=== PATIENT | female | born 1970 | race African-American/Black ===

== ENCOUNTER 2024-07-25 12:46 | Inpatient (IN) | payer BC ==
[2024-07-25 13:30] VITALS: BMI 23.7
[2024-07-25] MEDS ORDERED: BENZONATATE 200 MG CAPSULE PO PRN (15:36)
[2024-07-25] MEDS ORDERED: IBUPROFEN 400 MG TABLET (FP) PO PRN (15:36)
[2024-07-25] MEDS ORDERED: BENZOCAINE/MENTHOL (CHLORASEPTIC ) LOZENGE MM PRN (15:36)
[2024-07-25] MEDS ORDERED: NALOXONE (NARCAN) HCL 4 MG/0.1 ML SPRAY NS PRN (15:36)
[2024-07-25] MEDS ORDERED: LOPERAMIDE HCL 2 MG CAPSULE PO PRN (15:36)
[2024-07-25] MEDS ORDERED: MAG HYDROX/AL HYDROX/SIMETH 30 ML UNIT-DOSE CUP PO PRN (15:36)
[2024-07-25] MEDS ORDERED: guaiFENesin 600 MG TABLET.ER (FP) PO PRN (15:36)
[2024-07-25] MEDS ORDERED: POLYETHYLENE GLYCOL (HEALTHYLAX) 3350 17 GM PACKET PO PRN (15:36)
[2024-07-25] MEDS ORDERED: IBUPROFEN 600 MG TABLET (FP) PO PRN (15:36)
[2024-07-25] MEDS ORDERED: NICOTINE POLACRILEX 2 MG GUM BUC PRN (15:36)
[2024-07-25] MEDS: TUBERCULIN PPD 5 TU/0.1ML SYRINGE (IN PATIENT USE ONLY) ID ONE (18:38)
[2024-07-25] MEDS: THIAMINE 100 MG TABLET PO SCH (22:15)
[2024-07-25] MEDS: MELATONIN 5 MG TABLETS PO SCH (22:15)
[2024-07-26] MEDS ORDERED: methaDONE HCL 10 MG TABLET PO SCH (08:30)
[2024-07-26] MEDS: methaDONE 40 MG, methaDONE 20 MG PO SCH (10:11)
[2024-07-26] MEDS: NICOTINE 14 MG/24 HOURS TOPICAL PATCH TD SCH (10:12)
[2024-07-26] MEDS: PRENATAL VITAMINS W/ FOLIC ACID TABLET (FP) PO SCH (10:12)
[2024-07-26 14:35] LABS: HEMATOCRIT 39.9 % (32.4-45.2); HEMOGLOBIN 13.5 GM/dL (10.7-15.3); MCH 30.5 pg (25.7-33.7); MCHC 33.8 g/dl (32.0-36.0); MEAN CELL VOLUME 90.2 fl (80-96); MEAN PLT VOLUME 9.9 fl (7.5-11.1); PLATELET COUNT 169 10^3/uL (134-434); RBC 4.43 M/mm3 (3.60-5.2); RDW 12.8 % (11.6-15.6); WHITE BLOOD COUNT 6.8 K/mm3 (4.0-10.0)
[2024-07-26 14:40] LABS: CHLORIDE 107 mmol/L (98-107); POTASSIUM 3.8 mmol/L (3.5-5.1); SODIUM 143 mmol/L (136-145)
[2024-07-26 14:44] LABS: ALBUMIN 3.2 g/dl (3.4-5.0); ANION GAP 4 mmol/L (4-13); BLOOD UREA NITROGEN 10.8 mg/dL (7-18); CALCIUM 9.2 mg/dL (8.5-10.1); CO2 32 mmol/L (21-32); GLUCOSE,RANDOM 74 mg/dL (74-106)
[2024-07-26 14:47] LABS: CREATININE 0.7 mg/dL (0.55-1.3); SGOT/AST 15 U/L (15-37); SGPT/ALT 14 U/L (13-61)
[2024-07-26 14:49] LABS: BILIRUBIN,TOTAL 0.5 mg/dL (0.2-1); TOT PROT 6.9 g/dl (6.4-8.2)
[2024-07-26 14:50] LABS: ALK PHOS 88 U/L (45-117)
[2024-07-27] MEDS: hydrOXYzine PAMOATE 25 MG CAPSULE (FP) PO PRN (06:33)
[2024-07-27] MEDS ORDERED: ALBUTEROL SO4 HFA INHALER IH PRN (10:54)
[2024-07-27] MEDS: FAMOTIDINE 20 MG TABLET PO SCH (11:07)
[2024-07-27] MEDS: LOSARTAN POTASSIUM 50 MG TABLET PO SCH (11:07)
[2024-07-28] MEDS: MAGNESIUM HYDROX 2400MG/30ML ORAL SUSPENSION 30 ML CUP PO PRN (06:19)
[2024-07-28 09:09] LABS: EPI CELLS >36 /uL (0-25.1); HYALINE CASTS 2 /uL (0-3.1); URINE APPEARANCE CLOUDY; URINE BACTERIA 420 /uL (0-1359); URINE BILIRUBIN NEGATIVE (NEGATIVE); URINE COLOR YELLOW; URINE GLUCOSE (UA) NEGATIVE (NEGATIVE); URINE KETONE NEGATIVE (NEGATIVE); URINE LEUK ESTERASE TRACE (NEGATIVE); URINE NITRITE NEGATIVE (NEGATIVE); URINE PROTEIN NEGATIVE (NEGATIVE); URINE WBC 41 /uL (0-25.8)
[2024-07-28 09:45] LABS: URINE RBC 36 /uL (0-23.9)
[2024-07-28 09:46] LABS: URINE CRYSTALS PRESENT /hpf
[2024-07-29] MEDS: ALBUTEROL SO4 HFA INHALER IH PRN (09:49)
[2024-07-30] MEDS: SUVOREXANT 10 MG TABLET PO PRN (21:21)
[2024-07-31] MEDS: BENZTROPINE MESYLATE 1 MG TABLET PO SCH (09:48)
[2024-07-31] MEDS: LOSARTAN POTASSIUM 50 MG TABLET PO ONE (11:40)
[2024-08-01] MEDS: LOSARTAN POTASSIUM 50 MG TABLET PO SCH (06:22)
[2024-08-01] MEDS: BACLOFEN 10 MG TABLET (FP) PO SCH (10:33)
[2024-08-01] MEDS: ACETAMINOPHEN 325 MG TABLET (FP) PO PRN (10:35)
[2024-08-01] MEDS: METHYL SALICYLATE/MENTHOL 30 GM TUBE TP SCH (10:36)
[2024-08-01] MEDS: SUVOREXANT 10 MG TABLET PO PRN (21:39)
[2024-08-01] MEDS ORDERED: SUVOREXANT 15 MG TABLET PO PRN (22:00)
[2024-08-02] MEDS: hydrOXYzine PAMOATE 50 MG CAPSULE (FP) PO PRN (00:16)
[2024-08-02] MEDS: SUVOREXANT 5 MG TABLET PO PRN (21:26)
[2024-08-07 06:32] VITALS: RESP 18
[2024-08-07 22:31] VITALS: PULSE 60
[2024-08-08 07:15] VITALS: BP 120/75; TEMP 98
[2024-08-08] MEDS: NALOXONE (NYS OPIOID OVERDOSE PROGRAM) 4 MG/0.1 ML SPRAY NS PRN (09:47)
== END 2024-08-08 10:10 | disposition home or self-care (01) | DRG 772 ==
LOC: YASAS 12:46 → Y5N 17:30
PROVIDERS: ADMIT Psychiatry & Neurology Pain Medicine; ATTEND Psychiatry & Neurology Pain Medicine
PROC: HZ42ZZZ Group Counseling for Substance Abuse Treatment, Cognitive-Behavioral (ICD-10-PCS; principal; 2024-07-25)
DX: F14.20 Cocaine dependence, uncomplicated (principal); F10.20 Alcohol dependence, uncomplicated; F17.210 Nicotine dependence, cigarettes, uncomplicated; F19.282 Other psychoactive substance dependence with psychoactive substance-induced sleep disorder; F31.9 Bipolar disorder, unspecified; F41.9 Anxiety disorder, unspecified; F60.9 Personality disorder, unspecified; I10 Essential (primary) hypertension; J45.909 Unspecified asthma, uncomplicated; M19.041 Primary osteoarthritis, right hand; M19.042 Primary osteoarthritis, left hand; M19.011 Primary osteoarthritis, right shoulder; Z56.0 Unemployment, unspecified
CPT/HCPCS: 36415; 80053; 80305; 80307; 81003; 81025; 85027; 86780; 87811; 93005; 93010; J0475